=== PATIENT | female | born 1925 | race Asian ===

== ENCOUNTER 2016-06-10 03:34 | Inpatient (IN) | payer MEDICARE, OTHER ==
[~2016-06-10] VITALS: Ht 154.9 cm; Wt 61.1 kg
[~2016-06-10 03:34] MED LIST: CARV6 PO; CHOL2000 PO; DOCU50CA8 PO; GLUC1CAP PO; MONT10TA21 PO; RIVA20TA PO; TIOT185 IH
[2016-06-10 04:34] LABS: EOSINOPHILS # (AUTO) 0.08 K/uL (0.00-0.70); EOSINOPHILS % (AUTO) 0.99 % (1.0-6.0); HEMATOCRIT 43.5 % (36-46); HEMOGLOBIN 14.2 g/dL (12.0-16.0); LYMPHOCYTES # (AUTO) 0.4 K/uL (1.0-4.8); LYMPHOCYTES % (AUTO) 5.4 % (22.0-44.0); MEAN CORPUSCULAR HEMOGLOBIN 30.5 pg (26.0-34.0); MEAN CORPUSCULAR HGB CONC 32.6 G/dL (31.0-37.0); MEAN CORPUSCULAR VOLUME 93 fL (80-100); MONOCYTES # (AUTO) 0.2 K/uL (0.1-1.0); NEUTROPHILS # (AUTO) 7.1 K/uL (1.8-7.7); RED BLOOD CELL COUNT(AUTO) 4.66 MIL/uL (4.00-5.20); RED CELL DISTRIBUTION WIDTH 14.6 % (11.5-14.5); WHITE BLOOD COUNT (AUTO) 7.7 K/uL (4.5-11.0)
[2016-06-10 04:36] LABS: NEUTROPHILS % (AUTO) 91.6 % (40.0-70.0)
[2016-06-10 04:40] LABS: CALCIUM, TOTAL 9.6 mg/dL (8.8-10.5); CREATININE 1.63 mg/dL (0.60-1.30); POTASSIUM 5.5 mmol/L (3.5-5.1)
[2016-06-10 04:46] LABS: ALBUMIN 3.7 g/dL (3.4-5.0); BILIRUBIN,TOTAL 1.8 mg/dL (0.1-1.0)
[2016-06-10 04:53] LABS: PLATELET COUNT (AUTO) 99 K/uL (150-450)
[2016-06-10 04:54] LABS: APPEARANCE,URINE CLOUDY (CLEAR); GLUCOSE, URINE (UA) NEGATIVE (NEGATIVE); KETONES,URINE NEGATIVE (NEGATIVE); LEUKOCYTE ESTERASE ,URINE SMALL (NEGATIVE); OCCULT BLOOD,URINE LARGE (NEGATIVE); PROTEIN,URINE SEE CONFIRM (NEGATIVE)
[2016-06-10 05:04] LABS: ADD UA MICROSCOPIC YES
[2016-06-10 05:12] LABS: SQUAMOUS EPITHELIAL CELL,UR Few /LPF (None Seen)
[2016-06-10 05:14] LABS: SULFOSALICYLIC ACID,URINE 3+ (Negative)
[2016-06-10] MEDS ORDERED: SODIUM CHLORIDE 0.9% 1,000 ML IV ONE (05:30)
[2016-06-10] MEDS ORDERED: MORPHINE SULFATE 2 MG/ML SYRINGE IVP PRN (06:45)
[2016-06-10] MEDS ORDERED: ACETAMINOPHEN 325 MG TABLET PO PRN (06:45)
[2016-06-10] MEDS ORDERED: MAGNESIUM HYDROXIDE SUSPENSION 30 ML UDCUP PO PRN (06:45)
[2016-06-10] MEDS ORDERED: ALBUTEROL SULFATE 2.5 MG/0.5 ML NEB SOLUTION NEB PRN (06:45)
[2016-06-10] MEDS: DOCUSATE SODIUM 100 MG CAPSULE PO SCH ×2 (08:09→20:31)
[2016-06-10] MEDS: PANTOPRAZOLE SODIUM 40 MG/VIAL IVP SCH (08:11)
[2016-06-10] MEDS ORDERED: APIXABAN 2.5 MG TABLET PO SCH (09:00)
[2016-06-10] MEDS ORDERED: HEPARIN SODIUM,PORCINE 5,000 UNITS/ML VIAL SQ SCH (09:00)
[2016-06-10 09:33] VITALS: BP 116/77
[2016-06-10] MEDS: CARVEDILOL 6.25 MG TABLET PO SCH ×2 (10:31→20:31)
[2016-06-10 11:09] VITALS: BP 149/82
[2016-06-10 15:17] VITALS: BP 117/71
[2016-06-10 20:01] VITALS: BP 134/79
[2016-06-11] VITALS (7 sets, daily range): BP systolic 136–150; BP diastolic 71–80
[2016-06-11 07:10] LABS: BASOPHILS % (AUTO) 0.3 % (0.0-2.0); EOSINOPHILS % (AUTO) 3.1 % (1.0-6.0); HEMATOCRIT 37.2 % (36-46); HEMOGLOBIN 11.9 g/dL (12.0-16.0); LYMPHOCYTES # (AUTO) 0.7 K/uL (1.0-4.8); LYMPHOCYTES % (AUTO) 13.5 % (22.0-44.0); MEAN CORPUSCULAR HEMOGLOBIN 30.3 pg (26.0-34.0); MEAN CORPUSCULAR HGB CONC 32.1 G/dL (31.0-37.0); MEAN CORPUSCULAR VOLUME 95 fL (80-100); MONOCYTES # (AUTO) 0.5 K/uL (0.1-1.0); MONOCYTES % (AUTO) 9.6 % (2.0-9.0); NEUTROPHILS # (AUTO) 3.9 K/uL (1.8-7.7); NEUTROPHILS % (AUTO) 73.5 % (40.0-70.0); PLATELET COUNT (AUTO) 72 K/uL (150-450); RED BLOOD CELL COUNT(AUTO) 3.94 MIL/uL (4.00-5.20); RED CELL DISTRIBUTION WIDTH 14.3 % (11.5-14.5); WHITE BLOOD COUNT (AUTO) 5.3 K/uL (4.5-11.0)
[2016-06-11 07:26] LABS: ALBUMIN 2.8 g/dL (3.4-5.0); BILIRUBIN,TOTAL 2.4 mg/dL (0.1-1.0); CALCIUM, TOTAL 8.2 mg/dL (8.8-10.5); CREATININE 1.52 mg/dL (0.60-1.30); MAGNESIUM 1.7 mg/dL (1.80-2.40); POTASSIUM 4.9 mmol/L (3.5-5.1); TOTAL PROTEIN, SERUM 6.4 g/dL (6.4-8.2)
[2016-06-11] MEDS: DOCUSATE SODIUM 100 MG CAPSULE PO SCH ×2 (09:14→20:46)
[2016-06-11] MEDS: PANTOPRAZOLE SODIUM 40 MG/VIAL IVP SCH (09:15)
[2016-06-11] MEDS: CARVEDILOL 6.25 MG TABLET PO SCH ×2 (09:15→20:46)
[2016-06-11] MEDS: FUROSEMIDE 40 MG/4 ML VIAL IVP SCH (11:51)
[2016-06-11] MEDS ORDERED: MAGNESIUM SULFATE 2 GM in DEXTROSE 5%-WATER 50 ML IV ONE (14:45)
[2016-06-11] MEDS ORDERED: SODIUM CHLORIDE 0.9% 250 ML IV ONE (15:50)
[2016-06-11] MEDS: APIXABAN 2.5 MG TABLET PO SCH (20:46)
[2016-06-12] VITALS (7 sets, daily range): BP systolic 132–164; BP diastolic 74–108
[2016-06-12] MEDS: CARVEDILOL 6.25 MG TABLET PO SCH ×2 (05:57→21:00)
[2016-06-12 06:13] LABS: BILIRUBIN,TOTAL 2.4 mg/dL (0.1-1.0); CALCIUM, TOTAL 8.7 mg/dL (8.8-10.5); CREATININE 1.48 mg/dL (0.60-1.30); POTASSIUM 4.7 mmol/L (3.5-5.1); TOTAL PROTEIN, SERUM 6.7 g/dL (6.4-8.2)
[2016-06-12 06:51] LABS: BASOPHILS % (AUTO) 0.2 % (0.0-2.0); EOSINOPHILS % (AUTO) 3.8 % (1.0-6.0); HEMATOCRIT 39.8 % (36-46); HEMOGLOBIN 12.9 g/dL (12.0-16.0); LYMPHOCYTES # (AUTO) 0.7 K/uL (1.0-4.8); LYMPHOCYTES % (AUTO) 10.2 % (22.0-44.0); MEAN CORPUSCULAR HEMOGLOBIN 30.3 pg (26.0-34.0); MEAN CORPUSCULAR HGB CONC 32.4 G/dL (31.0-37.0); MEAN CORPUSCULAR VOLUME 94 fL (80-100); MONOCYTES # (AUTO) 0.7 K/uL (0.1-1.0); MONOCYTES % (AUTO) 10.9 % (2.0-9.0); NEUTROPHILS # (AUTO) 4.8 K/uL (1.8-7.7); NEUTROPHILS % (AUTO) 74.9 % (40.0-70.0); RED BLOOD CELL COUNT(AUTO) 4.25 MIL/uL (4.00-5.20); RED CELL DISTRIBUTION WIDTH 14.4 % (11.5-14.5); WHITE BLOOD COUNT (AUTO) 6.4 K/uL (4.5-11.0)
[2016-06-12 08:46] LABS: PLATELET COUNT (AUTO) 72 K/uL (150-450)
[2016-06-12] MEDS: FUROSEMIDE 40 MG/4 ML VIAL IVP SCH (09:10)
[2016-06-12] MEDS: APIXABAN 2.5 MG TABLET PO SCH ×2 (09:10→21:00)
[2016-06-12] MEDS: PANTOPRAZOLE SODIUM 40 MG/VIAL IVP SCH (09:10)
[2016-06-12] MEDS: DOCUSATE SODIUM 100 MG CAPSULE PO SCH ×2 (09:10→21:00)
[2016-06-12] MEDS ORDERED: 0.9% SODIUM CHLORIDE 10 ML SYRINGE IVP PRN (11:45)
[2016-06-12] MEDS ORDERED: AmLODIPine BESYLATE 10 MG TABLET PO ONE (13:45)
[2016-06-13 05:45] VITALS: BP 124/71
[2016-06-13 07:29] VITALS: BP 131/76
[2016-06-13] MEDS: CARVEDILOL 6.25 MG TABLET PO SCH (08:36)
[2016-06-13] MEDS: FUROSEMIDE 40 MG/4 ML VIAL IVP SCH (08:37)
[2016-06-13] MEDS: DOCUSATE SODIUM 100 MG CAPSULE PO SCH (08:37)
[2016-06-13] MEDS: APIXABAN 2.5 MG TABLET PO SCH (08:39)
[2016-06-13] MEDS: PANTOPRAZOLE SODIUM 40 MG/VIAL IVP SCH (08:39)
[2016-06-13] MEDS ORDERED: AmLODIPine BESYLATE 10 MG TABLET PO SCH (09:00)
[2016-06-13 11:11] VITALS: BP 134/80
[2016-06-13] MEDS ORDERED: ASPIRIN 81 MG CHEWABLE TABLET PO SCH (13:45)
[2016-06-13 14:57] VITALS: BP 136/72
[2016-06-13] MEDS ORDERED: ASPI-556 PO (16:03)
[2016-06-13] MEDS ORDERED: CARV12 PO (16:04)
[2016-06-13] MEDS ORDERED: AMLO-511 PO (16:04)
[2016-06-13] MEDS ORDERED: FURO40 PO (16:06)
== END 2016-06-13 18:40 | disposition home or self-care (01) | DRG 438 ==
LOC: EMS 03:35 → 6N 05:30 → 5S 05:30
PROVIDERS: ADMIT Internal Medicine; ATTEND Internal Medicine
DX: K85.90 Acute pancreatitis without necrosis or infection, unspecified (principal); I50.31 Acute diastolic (congestive) heart failure; I13.0 Hypertensive heart and chronic kidney disease with heart failure and stage 1 through stage 4 chronic kidney disease, or unspecified chronic kidney disease; K56.7 Ileus, unspecified; N17.9 Acute kidney failure, unspecified; K81.0 Acute cholecystitis; I48.2 Chronic atrial fibrillation; N18.3 Chronic kidney disease, stage 3 (moderate); J44.9 Chronic obstructive pulmonary disease, unspecified; M19.90 Unspecified osteoarthritis, unspecified site; F32.9 Major depressive disorder, single episode, unspecified; E87.5 Hyperkalemia; E83.42 Hypomagnesemia; Z79.899 Other long term (current) drug therapy; Z79.01 Long term (current) use of anticoagulants; Z90.49 Acquired absence of other specified parts of digestive tract; Z87.440 Personal history of urinary (tract) infections
CPT/HCPCS: 74022; 74176; 83735; 87086; 93005; 93306; 96361; 96374; 99285; C9113; J1940; J2270; J3475; J7050; J7060

== ENCOUNTER 2016-08-21 10:57 | Inpatient (IN) | payer MEDICARE, OTHER ==
[~2016-08-21] VITALS: Ht 160 cm; Wt 67.4 kg
[~2016-08-21 10:57] MED LIST changes: +AMLO-511 PO; +ASPI-556 PO; +CARV12 PO; -CARV6 PO; +FURO40 PO; -RIVA20TA PO
[2016-08-21 12:14] LABS: BASOPHILS % (AUTO) 0.1 % (0.0-2.0); EOSINOPHILS # (AUTO) 0.11 K/uL (0.00-0.70); EOSINOPHILS % (AUTO) 3.02 % (1.0-6.0); HEMATOCRIT 41.8 % (36-46); HEMOGLOBIN 13.3 g/dL (12.0-16.0); LYMPHOCYTES # (AUTO) 0.4 K/uL (1.0-4.8); LYMPHOCYTES % (AUTO) 10.6 % (22.0-44.0); MEAN CORPUSCULAR HEMOGLOBIN 31.3 pg (26.0-34.0); MEAN CORPUSCULAR VOLUME 98 fL (80-100); MONOCYTES # (AUTO) 0.4 K/uL (0.1-1.0); NEUTROPHILS # (AUTO) 2.7 K/uL (1.8-7.7); NEUTROPHILS % (AUTO) 76.3 % (40.0-70.0); PLATELET COUNT (AUTO) 41 K/uL (150-450); RED BLOOD CELL COUNT(AUTO) 4.27 MIL/uL (4.00-5.20); RED CELL DISTRIBUTION WIDTH 18.8 % (11.5-14.5); WHITE BLOOD COUNT (AUTO) 3.5 K/uL (4.5-11.0)
[2016-08-21 12:16] LABS: ANION GAP 10 mmol/L (8-16); CALCIUM, TOTAL 9.1 mg/dL (8.8-10.5); CARBON DIOXIDE 25 mmol/L (22-29); CHLORIDE 110 mmol/L (98-107); CREATININE 2.05 mg/dL (0.60-1.30); GLOMERULAR FILTR. RATE CALC 23 mL/min (>60); POTASSIUM 5.2 mmol/L (3.5-5.1); SODIUM SERUM 145 mmol/L (136-145); UREA NITROGEN, BLOOD 51 mg/dL (7-18)
[2016-08-21 12:24] LABS: ALANINE AMINOTRANSFERASE 31 U/L (12-78); ALBUMIN 3.3 g/dL (3.4-5.0); ASPARTATE AMINOTRANSFERASE 75 U/L (15-37); BILIRUBIN,TOTAL 1.9 mg/dL (0.1-1.0); CREATINE KINASE, TOTAL 63 U/L (26-192)
[2016-08-21 12:26] LABS: APPEARANCE,URINE CLOUDY (CLEAR); GLUCOSE, URINE (UA) NEGATIVE (NEGATIVE); KETONES,URINE TRACE mg/dL (NEGATIVE); LEUKOCYTE ESTERASE ,URINE TRACE (NEGATIVE); OCCULT BLOOD,URINE NEGATIVE (NEGATIVE); PH,URINE 5.5 (5.0-8.0); PROTEIN,URINE SEE CONFIRM (NEGATIVE)
[2016-08-21 12:27] LABS: ADD UA MICROSCOPIC YES
[2016-08-21] MEDS ORDERED: FUROSEMIDE 40 MG/4 ML VIAL IVP ONE (12:30)
[2016-08-21 12:33] LABS: B-TYPE NATRIURETIC PEPTIDE 314 pg/mL (0-100)
[2016-08-21] MEDS ORDERED: NYSTATIN 15 GM POWDER BOTTLE TP ONE (12:45)
[2016-08-21 12:48] LABS: RBC,URINE None Seen /HPF (0-2); SQUAMOUS EPITHELIAL CELL,UR Moderate /LPF (None Seen); SULFOSALICYLIC ACID,URINE 2+ (Negative)
[2016-08-21 13:15] LABS: RBC MORPHOLOGY COMMENT ABNORMAL RBC MORPH
[2016-08-21] MEDS ORDERED: ZOLPIDEM TARTRATE 5 MG TABLET PO PRN (15:00)
[2016-08-21] MEDS ORDERED: MORPHINE SULFATE 2 MG/ML SYRINGE IVP PRN (15:00)
[2016-08-21] MEDS ORDERED: BISACODYL 10 MG RECTAL RECTAL SUPPOSITORY PR PRN (15:00)
[2016-08-21] MEDS ORDERED: MAGNESIUM HYDROXIDE SUSPENSION 30 ML UDCUP PO PRN (15:00)
[2016-08-21] MEDS ORDERED: ACETAMINOPHEN 325 MG TABLET PO PRN ×2 (15:00→15:15)
[2016-08-21] MEDS ORDERED: HYDROCODONE/ACETAMINOPHEN 5-325 MG TABLET PO PRN (15:00)
[2016-08-21] MEDS ORDERED: ONDANSETRON HCL 4 MG/2 ML VIAL IVP PRN (15:15)
[2016-08-21 15:53] VITALS: BP 103/78
[2016-08-21] MEDS ORDERED: TIMO.25OS OU (16:09)
[2016-08-21] MEDS: HEPARIN SODIUM,PORCINE 5,000 UNITS/ML VIAL SQ SCH ×2 (16:26→23:55)
[2016-08-21] MEDS ORDERED: CALCIUM GLUCONATE 100 MG/ML 10 ML IVP ONE (17:47)
[2016-08-21 19:20] VITALS: BP 114/52
[2016-08-21] MEDS: CARVEDILOL 12.5 MG TABLET PO SCH (20:52)
[2016-08-21] MEDS: DOCUSATE SODIUM 100 MG CAPSULE PO SCH (20:52)
[2016-08-21] MEDS ORDERED: [UNRECOGNIZED DRUG - OTHER] PO SCH (21:00)
[2016-08-21] MEDS: ALBUTEROL SULFATE 2.5 MG/0.5 ML NEB SOLUTION NEB PRN (22:35)
[2016-08-21] MEDS: IPRATROPIUM BROMIDE 0.5 MG/2.5 ML NEB SOLUTION NEB PRN (22:35)
[2016-08-22] VITALS (9 sets, daily range): BP systolic 70–128; BP diastolic 62–78
[2016-08-22 06:05] LABS: EOSINOPHILS % (AUTO) 4.1 % (1.0-6.0); HEMATOCRIT 35.3 % (36-46); HEMOGLOBIN 11.7 g/dL (12.0-16.0); LYMPHOCYTES # (AUTO) 0.4 K/uL (1.0-4.8); LYMPHOCYTES % (AUTO) 12.7 % (22.0-44.0); MEAN CORPUSCULAR HEMOGLOBIN 31.8 pg (26.0-34.0); MEAN CORPUSCULAR VOLUME 96 fL (80-100); MONOCYTES # (AUTO) 0.3 K/uL (0.1-1.0); NEUTROPHILS % (AUTO) 71.2 % (40.0-70.0); PLATELET COUNT (AUTO) 32 K/uL (150-450); RED BLOOD CELL COUNT(AUTO) 3.66 MIL/uL (4.00-5.20); RED CELL DISTRIBUTION WIDTH 18.9 % (11.5-14.5); WHITE BLOOD COUNT (AUTO) 2.8 K/uL (4.5-11.0)
[2016-08-22 06:38] LABS: PROCALCITONIN (PCT) < 0.05 ng/mL (<0.50)
[2016-08-22 06:57] LABS: ANION GAP 11 mmol/L (8-16); CALCIUM, TOTAL 8.8 mg/dL (8.8-10.5); CARBON DIOXIDE 24 mmol/L (22-29); CHLORIDE 110 mmol/L (98-107); CREATININE 2.08 mg/dL (0.60-1.30); GLOMERULAR FILTR. RATE CALC 22 mL/min (>60); POTASSIUM 5.1 mmol/L (3.5-5.1); SODIUM SERUM 145 mmol/L (136-145); UREA NITROGEN, BLOOD 51 mg/dL (7-18)
[2016-08-22 07:02] LABS: ALANINE AMINOTRANSFERASE 27 U/L (12-78); ALBUMIN 2.8 g/dL (3.4-5.0); ASPARTATE AMINOTRANSFERASE 61 U/L (15-37); BILIRUBIN,TOTAL 1.8 mg/dL (0.1-1.0); TOTAL PROTEIN, SERUM 5.9 g/dL (6.4-8.2)
[2016-08-22] MEDS: HEPARIN SODIUM,PORCINE 5,000 UNITS/ML VIAL SQ SCH (08:00)
[2016-08-22] MEDS: FUROSEMIDE 20 MG/2 ML VIAL IVP SCH ×2 (09:00→18:39)
[2016-08-22] MEDS: ASPIRIN 81 MG EC TABLET PO SCH (09:00)
[2016-08-22] MEDS: TIOTROPIUM BROMIDE 18 MCG/INH HANDIHALER [5] IH SCH (09:00)
[2016-08-22] MEDS: MONTELUKAST SODIUM 10 MG TABLET PO SCH (09:00)
[2016-08-22] MEDS ORDERED: FUROSEMIDE 40 MG TABLET PO SCH (09:00)
[2016-08-22] MEDS: CHOLECALCIFEROL (VIT D3) 2,000 UNITS TABLET PO SCH (09:00)
[2016-08-22] MEDS: DOCUSATE SODIUM 100 MG CAPSULE PO SCH ×2 (09:00→20:31)
[2016-08-22] MEDS: CARVEDILOL 12.5 MG TABLET PO SCH ×2 (09:00→20:27)
[2016-08-22] MEDS: AmLODIPine BESYLATE 5 MG TABLET PO SCH (09:00)
[2016-08-22] MEDS ORDERED: SODIUM CHLORIDE 3% 15 ML NEB SOLUTION NEB ONE (10:54)
[2016-08-22] MEDS: PANTOPRAZOLE SODIUM 40 MG/VIAL IVP SCH (11:50)
[2016-08-22] MEDS ORDERED: FURO20 PO (12:29)
[2016-08-22] MEDS ORDERED: CARV6 PO (12:29)
[2016-08-22] MEDS ORDERED: DSS100 PO (12:29)
[2016-08-22 13:06] LABS: INR 1.3 (0.9-1.1); PROTHROMBIN TIME 13.4 SEC (9.4-11.6)
[2016-08-22 13:14] LABS: TROPONIN I 0.02 ng/mL (0.00-0.05)
[2016-08-22 13:18] LABS: CREATINE KINASE, TOTAL 41 U/L (26-192)
[2016-08-22 13:50] LABS: ABG A-A DIFF O2 34.2 mmHg (10-20.0); ABG BASE EXCESS -0.2 mmol/L (-2.0-3.0); ABG OXYHEMOGLOBIN 89.5 % (94.0-100.0); ABG PCO2 44 mmHg (35-45); ABG PH 7.372 (7.35-7.450); TEMPERATURE, FAHRENHEIT, BG 97.6 FAHREN (96.0-98.6)
[2016-08-22 13:51] LABS: ALLEN TEST, BLOOD GAS Positive
[2016-08-22] MEDS: LACTULOSE 20 GM/30 ML SOLUTION UDCUP PO SCH ×3 (15:47→23:17)
[2016-08-22] MEDS ORDERED: LACTULOSE 20 GM/30 ML SOLUTION UDCUP PO SCH (18:00)
[2016-08-22 22:42] LABS: GLUCOSE COMMENT 1 Juice/Food/D50 Given; GLUCOSE,POINT OF CARE 81 MG/DL (70-110)
[2016-08-22 22:42] LABS: GLUCOSE,POINT OF CARE 93 MG/DL (70-110)
[2016-08-23 05:04] VITALS: BP 101/63
[2016-08-23] MEDS: ONDANSETRON HCL 4 MG/2 ML VIAL IVP PRN ×3 (05:51→23:40)
[2016-08-23] MEDS: LACTULOSE 20 GM/30 ML SOLUTION UDCUP PO SCH ×4 (05:58→23:40)
[2016-08-23 07:06] LABS: EOSINOPHILS % (AUTO) 1.3 % (1.0-6.0); HEMATOCRIT 38.5 % (36-46); HEMOGLOBIN 12.9 g/dL (12.0-16.0); LYMPHOCYTES # (AUTO) 0.3 K/uL (1.0-4.8); LYMPHOCYTES % (AUTO) 6.2 % (22.0-44.0); MEAN CORPUSCULAR HEMOGLOBIN 32.4 pg (26.0-34.0); MEAN CORPUSCULAR HGB CONC 33.6 G/dL (31.0-37.0); MEAN CORPUSCULAR VOLUME 96 fL (80-100); MONOCYTES # (AUTO) 0.5 K/uL (0.1-1.0); MONOCYTES % (AUTO) 8.4 % (2.0-9.0); NEUTROPHILS # (AUTO) 4.6 K/uL (1.8-7.7); NEUTROPHILS % (AUTO) 84.1 % (40.0-70.0); PLATELET COUNT (AUTO) 38 K/uL (150-450); RED BLOOD CELL COUNT(AUTO) 3.99 MIL/uL (4.00-5.20); RED CELL DISTRIBUTION WIDTH 19.1 % (11.5-14.5); WHITE BLOOD COUNT (AUTO) 5.5 K/uL (4.5-11.0)
[2016-08-23 07:11] LABS: RBC MORPHOLOGY COMMENT ABNORMAL RBC MORPH
[2016-08-23 07:15] LABS: CALCIUM, TOTAL 9.1 mg/dL (8.8-10.5); CREATININE 2.55 mg/dL (0.60-1.30); POTASSIUM 5.2 mmol/L (3.5-5.1)
[2016-08-23 07:18] VITALS: BP 114/55
[2016-08-23] MEDS: MONTELUKAST SODIUM 10 MG TABLET PO SCH (07:54)
[2016-08-23] MEDS: ASPIRIN 81 MG EC TABLET PO SCH (07:54)
[2016-08-23] MEDS: CARVEDILOL 12.5 MG TABLET PO SCH ×2 (07:54→21:00)
[2016-08-23] MEDS: CHOLECALCIFEROL (VIT D3) 2,000 UNITS TABLET PO SCH (07:54)
[2016-08-23] MEDS: FUROSEMIDE 20 MG/2 ML VIAL IVP SCH (07:55)
[2016-08-23] MEDS: PANTOPRAZOLE SODIUM 40 MG/VIAL IVP SCH (07:55)
[2016-08-23] MEDS: TIOTROPIUM BROMIDE 18 MCG/INH HANDIHALER [5] IH SCH (07:55)
[2016-08-23] MEDS: DOCUSATE SODIUM 100 MG CAPSULE PO SCH ×2 (07:56→21:00)
[2016-08-23] MEDS: AmLODIPine BESYLATE 5 MG TABLET PO SCH (08:24)
[2016-08-23 10:58] VITALS: BP 135/95
[2016-08-23] MEDS: ALBUTEROL SULFATE 2.5 MG/0.5 ML NEB SOLUTION NEB PRN (12:01)
[2016-08-23] MEDS: IPRATROPIUM BROMIDE 0.5 MG/2.5 ML NEB SOLUTION NEB PRN (12:01)
[2016-08-23 15:13] VITALS: BP 136/66
[2016-08-23 19:34] VITALS: BP 127/74
[2016-08-24] VITALS (9 sets, daily range): BP systolic 90–157; BP diastolic 52–90
[2016-08-24] MEDS: LACTULOSE 20 GM/30 ML SOLUTION UDCUP PO SCH ×3 (05:40→20:39)
[2016-08-24] MEDS: ONDANSETRON HCL 4 MG/2 ML VIAL IVP PRN ×2 (05:40→13:21)
[2016-08-24] MEDS: MONTELUKAST SODIUM 10 MG TABLET PO SCH (08:49)
[2016-08-24] MEDS: ASPIRIN 81 MG EC TABLET PO SCH (08:49)
[2016-08-24] MEDS: PANTOPRAZOLE SODIUM 40 MG/VIAL IVP SCH (08:49)
[2016-08-24] MEDS: DOCUSATE SODIUM 100 MG CAPSULE PO SCH ×2 (08:49→20:39)
[2016-08-24] MEDS: FUROSEMIDE 20 MG/2 ML VIAL IVP SCH (08:50)
[2016-08-24] MEDS: CHOLECALCIFEROL (VIT D3) 2,000 UNITS TABLET PO SCH (08:51)
[2016-08-24] MEDS: TIOTROPIUM BROMIDE 18 MCG/INH HANDIHALER [5] IH SCH (08:51)
[2016-08-24] MEDS: CARVEDILOL 12.5 MG TABLET PO SCH ×2 (09:00→21:00)
[2016-08-24] MEDS: AmLODIPine BESYLATE 5 MG TABLET PO SCH (09:00)
[2016-08-24 14:06] LABS: EOSINOPHILS % (AUTO) 0.2 % (1.0-6.0); HEMOGLOBIN 13.2 g/dL (12.0-16.0); LYMPHOCYTES # (AUTO) 0.2 K/uL (1.0-4.8); MEAN CORPUSCULAR HEMOGLOBIN 32.2 pg (26.0-34.0); MEAN CORPUSCULAR HGB CONC 32.9 G/dL (31.0-37.0); MEAN CORPUSCULAR VOLUME 98 fL (80-100); MONOCYTES # (AUTO) 0.4 K/uL (0.1-1.0); MONOCYTES % (AUTO) 10.4 % (2.0-9.0); NEUTROPHILS # (AUTO) 2.9 K/uL (1.8-7.7); NEUTROPHILS % (AUTO) 82.4 % (40.0-70.0); PLATELET COUNT (AUTO) 34 K/uL (150-450); RED CELL DISTRIBUTION WIDTH 19.3 % (11.5-14.5); WHITE BLOOD COUNT (AUTO) 3.5 K/uL (4.5-11.0)
[2016-08-24] MEDS: ALBUTEROL SULFATE 2.5 MG/0.5 ML NEB SOLUTION NEB PRN ×2 (14:22→15:47)
[2016-08-24] MEDS: IPRATROPIUM BROMIDE 0.5 MG/2.5 ML NEB SOLUTION NEB PRN ×2 (14:22→15:47)
[2016-08-24 14:23] LABS: CALCIUM, TOTAL 9.2 mg/dL (8.8-10.5); CREATININE 3.09 mg/dL (0.60-1.30); POTASSIUM 5.8 mmol/L (3.5-5.1)
[2016-08-24 14:30] LABS: RBC MORPHOLOGY COMMENT ABNORMAL RBC MORPH
[2016-08-24 15:43] LABS: TEMPERATURE, FAHRENHEIT, BG 98.6 FAHREN (96.0-98.6)
[2016-08-24 15:46] LABS: ABG A-A DIFF O2 82.8 mmHg (10-20.0); ABG HCO3 19.4 mmol/L (22.0-26.0); ABG OXYHEMOGLOBIN 98.7 % (94.0-100.0); ABG PCO2 38 mmHg (35-45)
[2016-08-24 15:48] LABS: ALLEN TEST, BLOOD GAS Positive
[2016-08-24] MEDS ORDERED: PHENYLEPHRINE 200 MG/D5%-WATER 250 ML IV ONE (17:21)
[2016-08-24] MEDS ORDERED: SODIUM CHLORIDE 0.9% 1,000 ML IV ONE ×2 (17:26→20:10)
[2016-08-24] MEDS ORDERED: PHENYLEPHRINE 200 MG/D5%-WATER 250 ML IV PRN (17:29)
[2016-08-24] MEDS ORDERED: SODIUM CHLORIDE 0.9% 500 ML IV ONE (17:30)
[2016-08-24] MEDS ORDERED: NOREPINEPHRINE 4 MG/D5%-WATER 250 ML IV ONE (17:32)
[2016-08-24] MEDS: NOREPINEPHRINE 4 MG/D5%-WATER 250 ML IV PRN ×2 (17:41→22:04)
[2016-08-24] MEDS ORDERED: VASOPRESSIN 100 UNITS in DEXTROSE 5%-WATER 245 ML IV PRN (18:47)
[2016-08-24] MEDS: DOPamine HCL 400 MG/D5%-WATER 250 ML IV PRN (19:07)
[2016-08-24] MEDS: ALBUMIN HUMAN 25%-25GM/100ML 100 ML IV SCH (19:11)
[2016-08-24] MEDS ORDERED: SODIUM BICARBONATE IV SCH (19:15)
[2016-08-24] MEDS ORDERED: SODIUM CHLORIDE 0.9% IV SCH (19:15)
[2016-08-24] MEDS ORDERED: CALCIUM GLUCONATE IV SCH (19:15)
[2016-08-24] MEDS ORDERED: HEPARIN SODIUM,PORCINE 1,000 UNITS/ML VIAL ONE (20:18)
[2016-08-24 20:30] LABS: CALCIUM, TOTAL 8.8 mg/dL (8.8-10.5); CREATININE 3.28 mg/dL (0.60-1.30); POTASSIUM 4.7 mmol/L (3.5-5.1)
[2016-08-24] MEDS ORDERED: HEPARIN SODIUM,PORCINE 1,000 UNITS/ML VIAL IVP ONE (20:30)
[2016-08-24] MEDS: PIPERACILLIN SODIUM/TAZOBACTAM 2.25 GM in DEXTROSE 5%-WATER 50 ML IV SCH (20:39)
[2016-08-25] VITALS: BP 123/35
[2016-08-25] MEDS: LACTULOSE 20 GM/30 ML SOLUTION UDCUP PO SCH ×2 (00:25→06:06)
[2016-08-25] MEDS: DOPamine HCL 400 MG/D5%-WATER 250 ML IV PRN ×2 (01:55→08:10)
[2016-08-25] MEDS: NOREPINEPHRINE 4 MG/D5%-WATER 250 ML IV PRN ×3 (01:56→08:38)
[2016-08-25] MEDS: ALBUMIN HUMAN 25%-25GM/100ML 100 ML IV SCH ×2 (01:57→09:18)
[2016-08-25 04:00] VITALS: BP 95/30
[2016-08-25] MEDS: PIPERACILLIN SODIUM/TAZOBACTAM 2.25 GM in DEXTROSE 5%-WATER 50 ML IV SCH (04:41)
[2016-08-25 07:22] LABS: HEMATOCRIT 33.3 % (36-46); HEMOGLOBIN 10.7 g/dL (12.0-16.0); MEAN CORPUSCULAR HEMOGLOBIN 32.2 pg (26.0-34.0); MEAN CORPUSCULAR HGB CONC 32.2 G/dL (31.0-37.0); MEAN CORPUSCULAR VOLUME 100 fL (80-100); RED BLOOD CELL COUNT(AUTO) 3.33 MIL/uL (4.00-5.20); RED CELL DISTRIBUTION WIDTH 19.7 % (11.5-14.5)
[2016-08-25 07:25] LABS: PLATELET COUNT (AUTO) 30 K/uL (150-450)
[2016-08-25 07:40] LABS: CALCIUM, TOTAL 8.1 mg/dL (8.8-10.5); CREATININE 3.7 mg/dL (0.60-1.30); POTASSIUM 4.8 mmol/L (3.5-5.1)
[2016-08-25 08:00] VITALS: BP 100/27
[2016-08-25 08:10] VITALS: BP 101/28
[2016-08-25] MEDS: PANTOPRAZOLE SODIUM 40 MG/VIAL IVP SCH (08:33)
[2016-08-25] MEDS: FUROSEMIDE 20 MG/2 ML VIAL IVP SCH (09:00)
[2016-08-25] MEDS: AmLODIPine BESYLATE 5 MG TABLET PO SCH (09:00)
[2016-08-25] MEDS: MONTELUKAST SODIUM 10 MG TABLET PO SCH (09:00)
[2016-08-25] MEDS: CARVEDILOL 12.5 MG TABLET PO SCH (09:00)
[2016-08-25] MEDS: TIOTROPIUM BROMIDE 18 MCG/INH HANDIHALER [5] IH SCH (09:00)
[2016-08-25] MEDS: CHOLECALCIFEROL (VIT D3) 2,000 UNITS TABLET PO SCH (09:00)
[2016-08-25] MEDS: DOCUSATE SODIUM 100 MG CAPSULE PO SCH (09:00)
[2016-08-25] MEDS: ASPIRIN 81 MG EC TABLET PO SCH (09:00)
[2016-08-25 10:48] LABS: BAND NEUTROPHILS % (MANUAL) 1 % (1-5); EOSINOPHILS % (MANUAL) 1 % (1-6); LYMPHOCYTES % (MANUAL) 10 % (22-44); TOTAL CELLS COUNTED 100
[2016-08-25 10:50] LABS: RBC MORPHOLOGY COMMENT ABNORMAL R
[2016-08-25] MEDS ORDERED: VECURONIUM BROMIDE 10 MG/VIAL IVP ONE (11:36)
[2016-08-25] MEDS ORDERED: ETOMIDATE 2 MG/ML 10 ML VIAL IVP ONE (11:36)
[2016-08-26 20:03] LABS: GLUCOSE,POINT OF CARE 158 MG/DL (70-110)
== END 2016-08-25 11:37 | disposition expired | DRG 208 ==
LOC: EMS 11:00 → 5S 14:43 → ICU 08-24 15:10
PROVIDERS: ADMIT Hospitalist; ATTEND Hospitalist
PROC: 05HM33Z Insertion of Infusion Device into Right Internal Jugular Vein, Percutaneous Approach (ICD-10-PCS; principal; 2016-08-24)
PROC: B543ZZA Ultrasonography of Right Jugular Veins, Guidance (ICD-10-PCS; 2016-08-24)
PROC: 0BH17EZ Insertion of Endotracheal Airway into Trachea, Via Natural or Artificial Opening (ICD-10-PCS; 2016-08-24)
PROC: 5A1935Z Respiratory Ventilation, Less than 24 Consecutive Hours (ICD-10-PCS; 2016-08-24)
DX: J96.01 Acute respiratory failure with hypoxia (principal); J69.0 Pneumonitis due to inhalation of food and vomit; A41.9 Sepsis, unspecified organism; I50.33 Acute on chronic diastolic (congestive) heart failure; G93.40 Encephalopathy, unspecified; N17.0 Acute kidney failure with tubular necrosis; R65.21 Severe sepsis with septic shock; E44.0 Moderate protein-calorie malnutrition; I13.0 Hypertensive heart and chronic kidney disease with heart failure and stage 1 through stage 4 chronic kidney disease, or unspecified chronic kidney disease; E72.20 Disorder of urea cycle metabolism, unspecified; J44.0 Chronic obstructive pulmonary disease with (acute) lower respiratory infection; M19.90 Unspecified osteoarthritis, unspecified site; I48.0 Paroxysmal atrial fibrillation; N18.3 Chronic kidney disease, stage 3 (moderate); E78.5 Hyperlipidemia, unspecified; E87.5 Hyperkalemia; H40.9 Unspecified glaucoma; Z82.49 Family history of ischemic heart disease and other diseases of the circulatory system; Z91.11 Patient's noncompliance with dietary regimen; Z68.26 Body mass index [BMI] 26.0-26.9, adult
CPT/HCPCS: 51702; 70450; 74000; 82805; 82962; 83605; 84145; 87070; 87081; 87205; 92526; 92610; 93005; 94002; 94003; 94640; 94799; 96374; 99285; C9113; J0610; J1265; J1644; J1940; J2370; J2405; J2543; J3490; J7030; J7040; J7060; P9046